=== PATIENT | male | born 1995 | race Asian ===

== ENCOUNTER 2017-05-12 23:42 | Emergency (ER) | payer SELFPAY ==
--- NOTE | 2017-05-12 23:56 | EDPHY ---
H & P Stated Complaint: N/V x2 hours HPI/ROS: HPI CHIEF COMPLAINT: Nausea, vomiting, diarrhea HISTORY OF PRESENT ILLNESS: This patient very pleasant 22-year-old male, otherwise healthy no significant medical history does not take any daily medications he presents emergency room nausea vomiting diarrhea x2 hours. He denies any significant abdominal pain. 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 He is from [place]. He speaks Faroese primarily. 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 Patient denies any abdominal pain. His abdomen is soft. He vomited twice prior to arrival watery diarrhea no blood. Denies fever. Denies chest pain shortness of breath or abdominal pain. Past Medical History: Denies medical history Past Surgical History: Denies surgical history Social History: Denies daily use of drugs alcohol tobacco [employer] student. Mandarin speaking only. Family History: Noncontributory. ROS REVIEW OF SYSTEMS: A comprehensive 10 point review of systems is otherwise negative aside from elements mentioned in the history of present illness. Exam Constitutional appears well nontoxic triage nursing summary reviewed, vital signs reviewed, awake/alert. Eyes normal conjunctivae and sclera, EOMI, PERRLA. HENT normal inspection, atraumatic, moist mucus membranes, no epistaxis, neck supple/ no meningismus, no raccoon eyes. Respiratory clear to auscultation bilaterally, normal breath sounds, no respiratory distress, no wheezing. Cardiovascular rate normal, regular rhythm, no murmur, no edema, distal pulses normal. Gastrointestinal soft, non-tender, no rebound, no guarding, normal bowel sounds, no distension, no pulsatile mass. Genitourinary no CVA tenderness. Musculoskeletal no midline vertebral tenderness, full range of motion, no calf swelling, no tenderness of extremities, no meningismus, good pulses, neurovascularly intact. Skin pink, warm, & dry, no rash, skin atraumatic. Neurologic awake, alert and oriented x 3, AAOx3, moves all 4 extremities equally, motor intact, sensory intact, CN II-XII intact, normal cerebellar, normal vision, normal speech. Psychiatric normal mood/affect. Heme/Lymph/Immune no lymphadenopathy. Differential Diagnosis: Includes but is not limited to in a particular order dehydration, electrolyte disturbance, viral syndrome, enteritis, gastroenteritis , acute appendicitis, bowel obstruction Medical Decision Making: Plan for this patient IV established with IV fluid bolus, 1 L normal saline, 4 mg IV Zofran for nausea, check basic blood work and re-evaluate. Re-evaluation: [id number]: I did re-evaluate this patient at this time. Patient resting comfortably. Abdomen is soft nontender. No guarding or peritoneal signs. Blood work has been reviewed mild leukocytosis. Electrolytes appropriate. He is feeling better after IV fluids nausea medicine. He is requesting discharge home. His abdomen is soft nontender. I did give him return precautions he understands return emergency room if develops worsening abdominal pain fever vomiting. Source: Patient - Personal History Current Tetanus/Diphtheria Vaccine: No - Medical/Surgical History Hx Asthma: No Hx Chronic Respiratory Disease: No Hx Diabetes: No Hx Cardiac Disease: No Hx Renal Disease: No Hx Cirrhosis: No Hx Alcoholism: No Hx HIV/AIDS: No Hx Splenectomy or Spleen Trauma: No Other PMH: gastroenteritis, - Social History Smoking Status: Never smoked Constitutional: Initial Vital Signs Temperature (C) 36.8 C 05/12/17 23:46 Heart Rate 97 05/12/17 23:46 Respiratory Rate 18 05/12/17 23:46 Blood Pressure 120/82 H 05/12/17 23:46 O2 Sat (%) 98 05/12/17 23:46 O2 Delivery Mode Room Air Allergies/Adverse Reactions: No Known Allergies Allergy (Unverified 05/12/17 23:48) Home Medications: Medication Instructions Recorded NK [No Known Home Meds] 05/12/17 Medical Decision Making - Data Points Laboratory Results: Laboratory Results 05/13/17 00:30 05/13/17 00:30 05/13/17 05/13/17 05/13/17 01:42 00:30 00:30 WBC 11.66 10^3/uL H 10^3/uL (3.80-9.50) RBC 7.07 10^6/uL H 10^6/uL (4.40-6.38) Hgb 15.0 g/dL g/dL (13.7-17.5) Hct 46.6 % % (40.0-51.0) MCV 65.9 fL L fL (81.5-99.8) MCH 21.2 pg L pg (27.9-34.1) MCHC 32.2 g/dL L g/dL (32.4-36.7) RDW 17.5 % H % (11.5-15.2) Plt Count 301 10^3/uL 10^3/uL (150-400) MPV 10.0 fL fL (8.7-11.7) Neut % (Auto) 89.7 % H % (39.3-74.2) Lymph % (Auto) 4.5 % L % (15.0-45.0) [place] % (Auto) 4.8 % % (4.5-13.0) Eos % (Auto) 0.4 % L % (0.6-7.6) Baso % (Auto) 0.3 % % (0.3-1.7) Nucleat RBC Rel Count 0.0 % % (0.0-0.2) Absolute Neuts (auto) 10.45 10^3/uL H 10^3/uL (1.70-6.50) Absolute Lymphs (auto) 0.53 10^3/uL L 10^3/uL (1.00-3.00) Absolute Monos (auto) 0.56 10^3/uL 10^3/uL (0.30-0.80) Absolute Eos (auto) 0.05 10^3/uL 10^3/uL (0.03-0.40) Absolute Basos (auto) 0.03 10^3/uL 10^3/uL (0.02-0.10) Absolute Nucleated RBC 0.00 10^3/uL 10^3/uL (0-0.01) Immature Gran % 0.3 % % (0.0-1.1) Immature Gran # 0.04 10^3/uL 10^3/uL (0.00-0.10) Platelet Estimate Pending Smear Review By Pending Sodium 146 mEq/L H mEq/L (134-144) Potassium 4.0 mEq/L mEq/L (3.5-5.2) Chloride 106 mEq/L mEq/L (97-110) Carbon Dioxide 21 mEq/l L mEq/l (22-31) Anion Gap 19 mEq/L H mEq/L (8-16) BUN 20 mg/dL mg/dL (7-23) Creatinine 1.0 mg/dL mg/dL (0.7-1.3) Estimated GFR > 60 Glucose 113 mg/dL H mg/dL (70-100) Calcium 9.6 mg/dL mg/dL (8.5-10.4) Total Bilirubin 1.1 mg/dL mg/dL (0.1-1.4) Conjugated Bilirubin 0.2 mg/dL mg/dL (0.0-0.5) Unconjugated Bilirubin 0.9 mg/dL mg/dL (0.0-1.1) AST 33 IU/L IU/L (17-59) ALT 48 IU/L IU/L (21-72) Alkaline Phosphatase 75 IU/L IU/L (38-126) Total Protein 8.1 g/dL g/dL (6.3-8.2) Albumin 4.9 g/dL g/dL (3.5-5.0) Lipase 52 IU/L IU/L (23-300) Urine Color Pending Urine Appearance Pending Urine pH Pending Ur Specific [place] Pending Urine Protein Pending Urine Ketones Pending Urine Blood Pending Urine Nitrate Pending Urine Bilirubin Pending Urine Urobilinogen Pending Ur Leukocyte Esterase Pending Urine Glucose Pending Medications Given: Discontinued Medications Sodium Chloride (Ns) 1,000 mls @ 0 mls/hr IV EDNOW ONE; Wide Open PRN Reason: Protocol Stop: 05/13/17 00:04 Last Admin: 05/13/17 00:24 Dose: 1,000 mls Ondansetron HCl (Zofran) 4 mg IVP EDNOW ONE Stop: 05/13/17 00:04 Last Admin: 05/13/17 00:28 Dose: 4 mg Departure - Departure Disposition: Home, Routine, Self-Care Clinical Impression: Nausea and vomiting Condition: Good Instructions: Acute Nausea and Vomiting (ED) Additional Instructions: 1. Please return to the emergency room if develops worsening abdominal pain fever vomiting. 2. [place] diet next 24-48 hours.
[2017-05-13] MEDS ORDERED: NS 1,000 ML IV ONE (00:03)
[2017-05-13] MEDS ORDERED: ONDANSETRON 4 MG/2 ML VIAL IVP ONE (00:03)
[2017-05-13 00:51] LABS: ALBUMIN 4.9 g/dL (3.5-5.0); ALKALINE PHOSPHATASE 75 IU/L (38-126); ANION GAP 19 mEq/L (8-16); ASPARTATE AMINOTRANSFERASE 33 IU/L (17-59); BILIRUBIN,TOTAL 1.1 mg/dL (0.1-1.4); BILIRUBIN-UNCONJUGATED 0.9 mg/dL (0.0-1.1); CALCIUM 9.6 mg/dL (8.5-10.4); CARBON DIOXIDE 21 mEq/l (22-31); CHLORIDE 106 mEq/L (97-110); GLOMERULAR FILTRATION RATE > 60; GLUCOSE 113 mg/dL (70-100); SODIUM 146 mEq/L (134-144); TOTAL PROTEIN 8.1 g/dL (6.3-8.2)
[2017-05-13 00:52] LABS: ALANINE AMINOTRANSFERASE 48 IU/L (21-72); BILIRUBIN-CONJUGATED 0.2 mg/dL (0.0-0.5)
[2017-05-13 01:02] LABS: % IMMATURE GRANULYOCYTES 0.3 % (0.0-1.1); ABSOLUTE IMMATURE GRANULOCYTES 0.04 10^3/uL (0.00-0.10); ADD DIFF? NO; ADD MORPH? YES; ADD SCAN? NO; ATYPICAL LYMPHOCYTE FLAG 0 (0-99); FRAGMENT RBC FLAG 0 (0-99); HEMATOCRIT 46.6 % (40.0-51.0); LEFT SHIFT FLG 0 (0-99); LIPEMIA HEMOLYSIS FLAG 80 (0-99); MEAN CELL HEMOGLOBIN 21.2 pg (27.9-34.1); MEAN CELL HEMOGLOBIN CONCENTR. 32.2 g/dL (32.4-36.7); PLATELET CLUMPS FLAG 0 (0-99); PLATELET COUNT 301 10^3/uL (150-400); RED BLOOD CELL COUNT 7.07 10^6/uL (4.40-6.38); RED CELL DISTRIBUTION WIDTH 17.5 % (11.5-15.2)
[2017-05-13 01:29] LABS: MEAN CELL VOLUME 65.9 fL (81.5-99.8)
[2017-05-13 02:02] LABS: COLOR YELLOW; LEUKOCYTE ESTERASE,URINE NEGATIVE (NEGATIVE); NITRITE,URINE NEGATIVE (NEGATIVE)
[2017-05-13 02:13] LABS: HYPOCHROMIA 2+; MACROCYTES 1+; PLATELET ESTIMATE ADEQUATE (ADEQ)
[2017-05-13 02:14] LABS: TOXIC GRANULATION PRESENT
[2017-05-13 02:36] VITALS: BP 117/66; PULSE 86; RESP 18; TEMP 97.9; O2SAT 96
== END 2017-05-13 02:36 | disposition home or self-care (01) ==
DX: R11.2 Nausea with vomiting, unspecified (principal); E86.9 Volume depletion, unspecified
CPT/HCPCS: 96374; J2405